=== PATIENT | female | born 1960 | race Caucasian/White ===

== ENCOUNTER 2019-09-22 15:25 | Emergency (ER) | payer SELFPAY ==
[~2019-09-22] VITALS: Ht 160 cm; Wt 74.1 kg
[2019-09-22 15:30] VITALS: BP 140/72
[2019-09-22] MEDS ORDERED: ACETAMINOPHEN 325MG TABLET PO ONE (16:15)
== END 2019-09-22 18:15 | disposition home or self-care (01) ==
LOC: ER 15:25
DX: J18.9 Pneumonia, unspecified organism (principal)
CPT/HCPCS: 71045; 99283